=== PATIENT | male | born 1985 | race Hispanic/Latino ===

== ENCOUNTER 2016-12-26 05:42 | Emergency (ER) | payer OTHER ==
[~2016-12-26] VITALS: Ht 167.6 cm; Wt 111.4 kg
[~2016-12-26 05:42] MED LIST: HCTZ25 PO; ONDA4TAB48 PO; TAM4 PO; oxycodone PO
[2016-12-26 05:49] VITALS: BP 160/108; PULSE 86; RESP 18; O2SAT 95
--- NOTE | 2016-12-26 06:02 | ED.REPORT ---
HPI-Extremity Problem Lower Date of Service Dec 26, 2016 ED Provider: Brooklyn Wheeler MD The patient is a 31 year old male who presents to the emergency department complaining of left foot pain. The patient was at work when a box of tiles weighing about 50 pounds dropped onto his foot last night around [facility]. He has been able to walk but this exacerbates this pain. When he got home early this morning and took his shoe off he noticed increased pain and swelling. The pain is located to the medial aspect of his foot. He denies any other injuries or traumas. He denies numbness or weakness. Nursing Notes Stated Complaint: LEFT FOOT PAIN Chief Complaint: Extremity Trauma Nursing Notes Reviewed: Yes Allergies: Coded Allergies: ibuprofen (Verified Allergy, Unknown, 12/26/16) Scheduled Tamsulosin-Expunged Drug, Do Not Renew! (Flomax-Expunged Drug, Do Not Renew!) 0.4 Mg Capsule 0.4 MG PO DAILY Scheduled PRN ([oxycodone]) 5-15 MG PO Q4-6H PRN PRN For Pain Miscellaneous Medications Hydrochlorothiazide-Expunged, Do Not Renew! (Hydrochlorothiazide-Expunged, Do Not Renew!) 25 Mg Tablet MG PO Ondansetron (Zofran) 4 Mg Tab.rapdis 4 MG PO DISSOLVE UNDER TONGUE General Time Seen by MD: 06:02 Chief Complaint Foot injury left Hx Obtained From: Patient Arrived By: Walk-in Context: Occurred at: Workplace Location: : Foot left Quality: Painful Severity: Current: Moderate Severity: Maximum: Moderate Pertinent Negative: Pt denies other symptoms Recent Healthcare: No recent doctor visit, No recent hospitalization Similar Sx Previous: No Past Medical History Family History Noncontributory Smoking History Unknown if Ever Smoker Social History Other Social History: Good social support, Lives alone, Lives with children, Local resident Ambulatory Status Independent Review of Systems Musculoskeletal: Reports: Extremity pain, Extremity swelling Neurologic: Denies: Focal weakness, Numbness, Problem walking Complete sys rev & neg: except as marked. Physical Exam Initial Vital Signs Vital Signs (First) Date Time Temp Pulse Resp B/P Pulse Ox O2 Delivery O2 Flow Rate FiO2 12/26/16 05:49 37.2 86 18 160/108 95 Initial VS: Reviewed, Vital signs abnormal Head / Eyes: Atraumatic, Normocephalic, PERRL ENT: Mucous membranes moist, Conjunctiva normal, No scleral icterus Neck: Supple, Non-tender, Full range of motion Upper Extremities: Vascular intact, Neuro intact, No swelling, No tenderness Skin: Warm, Dry, No cyanosis Neurologic: Alert, Oriented, Nonfocal Psychiatric: Mood/affect normal, Behavior normal, Normal thought content Lower Extremity / Pelvis / MS: Neurologic intact, Vascular intact Ankle / Foot: Neurologic intact, Vascular intact He has pain at the 1st metatarsal on the left. General/Constitutional: Awake, Alert, Cooperative Respiratory / Chest: No respiratory distress Interpretation & Diagnostics X-Ray Interpretation X-Ray Ordered: Foot left Interpretation / Wet Read by: Wet read ED physician Interpretation: Normal exam, No fracture/dislocation Re-Eval/Medical Decision Med Decision/Clinical Course The patient has an isolated foot injury, there is no obvious trauma. X-rays are negative for fracture. There is no sign of infection and no sign of significant soft tissue injury neurologic injury or vascular injury. Source of Hx: Old records Re-Evaluation/Progress : Time of Eval: 06:42 Re-Evaluation/Progress Note: Rechecked the patient. Discussed plan for discharge. All questions were addressed. Counseled Regarding: Diagnosis, Need for follow-up, When/why to return to ED Discharge & Departure Impression: Primary Impression: Injury of left foot Encounter type: initial encounter Qualified Code: S99.922A - Unspecified injury of left foot, initial encounter Disposition: Home Discharge Condition All VS Reviewed: Yes Condition: Stable Additional Instructions: Thank you for entrusting us with your care today. Your x-ray today is reassuring. There is no evidence of any fractures. Use ibuprofen or Tylenol as needed for your pain. You can try applying ice to the painful areas if this helps. Seek care for increased pain, swelling, redness, fever, vomiting, or any other new or concerning symptoms. Referrals: NOPCP (PCP) Scribe Attestation Portions of this note were transcribed by Phyllis Correa. I, Dr. Wheeler personally performed the history, physical exam and medical decision-making; I reviewed and confirmed the accuracy of the information in the transcribed note. Signed by: Christiano Rodriguez, 12/26/2016 at 0700. Brooklyn Wheeler MD Dec 26, 2016 06:02 Phyllis Correa Dec 26, 2016 06:15
--- NOTE | 2016-12-26 08:52 | DRSVH ---
PROCEDURE: X-RAY LEFT FOOT COMPLETE, MINIMUM THREE VIEWS ([id number]) INDICATIONS: dropped a box of tiles on foot yesterday TECHNIQUE: 3 views of the foot were acquired. COMPARISON: None. FINDINGS: Bones: No fractures or dislocations. No suspicious bony lesions. Soft tissues: No tibiotalar joint effusion. Achilles tendon appears normal. IMPRESSION: No displaced fracture seen. If there is continued pain, followup exam or additional gallo ging such as MRI or CT could be performed for further assessment. Dictated by: Adam Mancini RRA Interpreted: Dior Osorio MD on 12/26/2016 at 8:52 Transcribed by: PALOMA on 12/26/2016 at 8:52 Approved by: Dior Osorio MD, PhD on 12/26/2016 at 12:50
== END 2016-12-26 07:15 | disposition home or self-care (01) ==
LOC: SED 05:42
DX: S99.922A Unspecified injury of left foot, initial encounter (principal); W20.8XXA Other cause of strike by thrown, projected or falling object, initial encounter; Y93.89 Activity, other specified; Y92.59 Other trade areas as the place of occurrence of the external cause; Y99.0 Civilian activity done for income or pay; Z88.6 Allergy status to analgesic agent